=== PATIENT | female | born 1950 | race Caucasian/White ===

== ENCOUNTER 2022-05-03 13:09 | Outpatient (CLI) | payer MEDICARE, BC | END 2022-05-03 13:10 | disposition home or self-care (01) | LOC: CSHMAMMO 13:09 | PROVIDERS: ATTEND Family Medicine | DX: Z12.31 Encounter for screening mammogram for malignant neoplasm of breast (principal) | CPT/HCPCS: 77063; 77067 ==

== ENCOUNTER 2022-06-21 10:41 | Outpatient (CLI) | payer MEDICARE, BC | END 2022-06-21 10:42 | disposition home or self-care (01) | LOC: CSHMAMMO 10:41 | PROVIDERS: ATTEND Family Medicine | DX: Z13.820 Encounter for screening for osteoporosis (principal); Z78.0 Asymptomatic menopausal state; M85.851 Other specified disorders of bone density and structure, right thigh; M85.852 Other specified disorders of bone density and structure, left thigh | CPT/HCPCS: 77080 ==

== ENCOUNTER 2025-01-21 09:47 | Outpatient (CLI) | payer MEDICARE, BC ==
[2025-01-21] MEDS ORDERED: Iopamidol 300 61% 100 ML VIAL FS ONE (10:15)
[2025-01-21 11:29] LABS: Estimated GFR - POC 67.0
== END 2025-01-21 09:48 | disposition home or self-care (01) ==
LOC: CSHCT 09:47
PROVIDERS: ATTEND Internal Medicine Hematology & Oncology
DX: C91.10 Chronic lymphocytic leukemia of B-cell type not having achieved remission (principal); N28.9 Disorder of kidney and ureter, unspecified; R59.0 Localized enlarged lymph nodes; K44.9 Diaphragmatic hernia without obstruction or gangrene; K83.8 Other specified diseases of biliary tract; K59.00 Constipation, unspecified
CPT/HCPCS: 74177; 82565